=== PATIENT | male | born 1975 | race Caucasian/White ===

== ENCOUNTER 2020-04-21 11:04 | Outpatient (REF) | payer BC, SELFPAY ==
[2020-04-21 11:27] LABS: COVID-19 Test Negative (Negative)
== END 2020-04-21 11:05 | disposition home or self-care (01) ==
LOC: HO.LAB 11:04
PROVIDERS: Visit Provider Internal Medicine
DX: Z20.828 Contact with and (suspected) exposure to other viral communicable diseases (principal)
CPT/HCPCS: 87635; C9803